=== PATIENT | male | born 1950 | race Caucasian/White ===

== ENCOUNTER → 2017-04-01 08:48 | Outpatient (CLI) | payer MEDICARE, BC ==
[~2017-04-01] VITALS: Ht 177.8 cm; Wt 106.8 kg
--- NOTE | ~2017-04-01 | HEMODYNAMI ---
PATIENT:RICCO ROBERSON MEDICAL RECORD: [id number] : 46 LOCATION:DKerriCAT ADMISSION DATE: 04/01/17 Generatedon:04/01/201713:18 Patient name: RICCO ROBERSON Patient #: [id number] SSN: : 1950 Date of study: 04/01/2017 Page: Of Hemodynamic Procedure Report Patient Data Patient Demographics Procedure consent was obtained First Name: RICCO Gender: Male Last Name: KAROL : 1950 [facility] Initial: BLAINE Age: 66 year(s) Patient #: [id number] Race: Unknown Additional ID: [id number] Contact details Address: [address] [place] [address] State: [place] City: [place] Zip code: [address] Admission Admission Data Admission Date: 04/01/2017 Admission Time: 8:48 Lab Results Lab Result Date: 04/01/2017 Lab Result Time: 0:00 Biochemistry Name Units Result Min Max BUN mg/dl 20 --(----)*- 7 18 Creatinine mg/dl 1.4 --(----)*- 0.6 1.3 CBC Name Units Result Min Max Hemoglobin g/dl 12.6 -*(----)-- 13.5 17.5 Procedure Procedure Types Cath Procedure Diagnostic Procedure [facility] w/Coronaries FFR/IVUS Intra-Coronary IVUS Initial PCI Procedure Coronary Stent Coronary Stent Initial Miscellaneous Procedures Moderate Sedation up to 15 minutes Procedure Description Procedure Date Procedure Date: 04/01/2017 Procedure Start Time: 12:59 Procedure End Time: 13:18 Procedure Staff Name Function Dalton Bowen MD Performing Physician Gregory Mishra RT Monitor Yumiko Lisa RT Scrub Mart Vega RN Nurse Procedure Data Cath Procedure Fluoroscopy Diagnostic fluoroscopy Total fluoroscopy Time: 3.7 time: 3.7 min min Diagnostic fluoroscopy Total fluoroscopy dose: 398 dose: 398 mGy mGy Contrast Material Contrast Material Type Amount (ml) Isovue 300 67 Entry Location Entry Primary Successful Side Size Upsize Upsize Entry Closure Succes sful Closure Location (Fr) 1 (Fr) 2 (Fr) Remarks Device Remarks Femoral Right 5 Fr 6 Fr Exoseal artery Short Estimated blood loss: 10 ml Diagnostic catheters Device Type Used For End Catheter Placement MULTIPACK Pigtail 5 Fr Procedure catheter MULTIPACK JL 4.0 5Fr Procedure catheter MULTIPACK 3DRC 5Fr Procedure catheter Procedure Complications No complications Procedure Medications Medication Administration Route Dosage Oxygen NC 2 l/min Lidocaine 2% added to field 20 Heparin Flush Bag added to field 2 bags (1000units/500ml NS) 0.9% NaCl I.V. 100 ml/hr Versed I.V. 1 mg Fentanyl I.V. 50 mcg Versed I.V. 1 mg Fentanyl I.V. 50 mcg Heparin Bolus I.V. 4000 units Fentanyl I.V. 25 mcg Hemodynamics Rest Heart Rate: 60 (bpm) Snapshots Pre Cath Intra NCS Post Cath Vital Signs Time Heart Resp SPO2 etCO2 NIBP (mmHg) Rhythm Pain Sedation Rate (ipm) (%) (mmHg) Status Level (bpm) 12:53:10 68 17 94 0 135/73(112) NSR 0 (11) 10(A) , No pain 12:57:28 63 16 97 0 121/72(94) NSR 0 (11) 10(A) , No pain 13:02:39 61 22 98 0 139/80(107) NSR 0 (11) 9(A) , No pain 13:06:55 60 18 98 0 129/76(109) NSR 0 (11) 9(A) , No pain 13:11:17 69 25 98 0 120/70(88) NSR 0 (11) 9(A) , No pain 13:15:31 67 18 100 0 133/82(98) NSR 0 (11) 10(A) , No pain Medications Time Medication Route Dose Verified Delivered Reason Notes Effectiveness by by 12:53:13 Oxygen NC 2 Dalton Cevallos used for l/min Andrés Vega RN procedure 12:53:22 Lidocaine 2% added 20ml Dalton Hoffman for local to vial Andrés Bowen MD anesthetic field 12:53:29 Heparin Flush added 2 Dalton Hoffman used for Bag to bags Andrés Bowen MD procedure (1000units/500ml field NS) 12:53:39 0.9% NaCl I.V. 100 Dalton Cevallos Per physician ml/hr Andrés Vega RN 12:58:05 Versed I.V. 1 mg Dalton Cecilyie for sedation Andrés Vega RN 12:58:11 Fentanyl I.V. 50 Dalton Buffie for sedation mcg Andrés Vega RN 13:00:41 Versed I.V. 1 mg Dalton Tonyie for sedation Andrés Vega RN 13:00:45 Fentanyl I.V. 50 Dalton Tonyie for sedation mcg Andrés Vega RN 13:05:03 Heparin Bolus I.V. 4000 Dalton Buffie for verifi ed units Andrés Vega RN anticoagulation with dr bowen 13:05:11 Fentanyl I.V. 25 Dalton Cecilyie for sedation mcg Andrés Vega RN Procedure Log Time Note 12:22:37 Time tracking: Regular hours 12:22:41 Plan of Care:Hemodynamics will remain stable., Cardiac rhythm will remain stable., Comfort level will be maintained., Respiratory function will remain adequate., Patient/ family verbilizes understanding of procedure., Procedure tolerated without complication., Recovers from procedure without complications.. 12:24:47 Gregory Mishra RT(R) sent for patient. Start room use. 12:25:49 H&P Date Dictated: 04/01/2017 Within 30 days and on chart., H&P Addendum completed by physician on day of procedure. (MUST COMPLETE FOR ALL OUTPATIENTS). 12:26:19 Lab Result : BUN 20 mg/dl 12:26:19 Lab Result : Hemoglobin 12.6 g/dl 12:26:19 Lab Result : Creatinine 1.4 mg/dl 12:26:25 Lab results completed and on chart. 12:35:29 Patient received from Pre/Post Procedure Room to CCL 3 Alert and oriented. Tansferred to table in Supine position. 12:35:30 Warm blankets applied, and taylor hugger turned on for patient comfort. 12:35:30 Correct patient and procedure confirmed by team. 12:35:32 Signed procedure consent form obtained from patient. 12:35:33 ECG and BP/O2 sat monitors applied to patient. 12:51:51 Vital chart was started 12:51:56 Rhythm: sinus rhythm 12:51:57 Full Disclosure recording started 12:51:59 Pre-procedure instructions explained to patient. 12:51:59 Pre-op teaching completed and patient verbalized understanding. 12:52:02 Family in waiting room. 12:52:03 Patient NPO since Midnight. 12:52:04 Is the patient allergic to Iodine/contrast media? No. 12:52:06 Is patient on blood thinner?Yes 12:52:18 ACC The patient was administered the following blood thiners within the last 24 hours: ACCPlavix 12:52:28 Patient diabetic? Yes. 12:52:29 If diabetic: On Metformin? Yes 12:52:35 If on Metformin: Last Dose? 03/30/2017 12:52:40 Previous problem with sedation/anesthesia? No ? 12:52:55 Snore? Yes 12:52:57 Sleep apnea? No 12:52:58 Deviated septum? No 12:52:58 Opens mouth fully? Yes 12:52:59 Sticks out tongue? Yes 12:53:02 Airway obstruction? No ? 12:53:05 Dentures? Yes IN 12:53:09 Pre procedure: right dorsailis pedis pulse 1+ Palpable, but thready & weak; easily obliterated 12:53:11 Modified Ke's test Ulnar > 7 seconds. 12:53:13 Oxygen 2 l/min NC was administered by Mart Vgea RN; used for procedure; 12:53:22 Lidocaine 2% 20ml vial added to field was administered by Dalton Bowen MD; for local anesthetic; 12:53:22 FAILED ALLENS 12:53:25 Patient pain scale 0/10 ?. 12:53:29 Heparin Flush Bag (1000units/500ml NS) 2 bags added to field was administered by Dalton Bowen MD; used for procedure; 12:53:32 IV patent on arrival in left forearm with 0.9% NaCl at O. 12:53:39 0.9% NaCl 100 ml/hr I.V. was administered by Mart Vega RN; Per physician; 12:53:43 Right groin area was prepped with chlora-prep and draped in sterile fashion 12:53:44 Alarms reviewed by R. N. 12:53:45 Sharps counted by scrub and verified by R.N. 12:53:51 Use device set Femoral Dx 12:53:53 Tegaderm 4 x 4 (1626W) opened to sterile field. 12:53:54 ACIST Manifold (54666) opened to sterile field. 12:53:54 ACIST Hand Control (62563) opened to sterile field. 12:53:56 ACIST Syringe (32082) opened to sterile field. 12:53:56 Bag Decanter (2002S) opened to sterile field. 12:53:57 Medline Cath Pack ([id number]) opened to sterile field. 12:53:57 SHEATH 5FR [place] (ELM876) opened to sterile field. 12:54:10 DIAGNOSTIC WIRE .035 260cm J wire (723230) opened to sterile field. 12:54:13 DIAGNOSTIC Multipack 5Fr catheter set (FH9961) opened to sterile field. 12:54:13 PERCUTANEOUS ENTRY 19GA needle opened to sterile field. 12:57:24 --------ALL STOP TIME OUT------ 12:57:25 Final Timeout: patient, procedure, and site verified with staff and physician. All members of the team are in agreement. 12:57:30 Right groin site verified by team. 12:57:32 Physical assessment completed. ASA score P 2 - A patient with mild systemic disease as per Dalton Bowen MD. 12:57:35 Sedation plan: IV Moderate Sedation Medication:Versed, Fentanyl 12:58:05 Versed 1 mg I.V. was administered by Mart Vega RN; for sedation; 12:58:11 Fentanyl 50 mcg I.V. was administered by Mart Vega RN; for sedation; 12:59:14 Procedure started. 12:59:17 Local anesthetic to right femoral artery with Lidocaine 2% by Dalton Bowen MD.INITIAL ACCESS ONLY 12:59:40 A 5 Fr sheath was inserted into the Right Femoral artery 12:59:54 A MULTIPACK Pigtail 5 Fr catheter was advanced over the wire and used for Procedure. 12:59:59 Baseline sample Acquired. 13:00:18 LV angiography performed. 13:00:19 LV gram done using CROOK 13:00:24 EF : 55 % 13:00:30 Injector settings: Ml/sec: 10, Volume: 20, 13:00:33 Catheter removed. 13:00:40 A MULTIPACK JL 4.0 5Fr catheter was advanced over the wire and used for Procedure. 13:00:41 Versed 1 mg I.V. was administered by Mart Vega RN; for sedation; 13:00:45 Fentanyl 50 mcg I.V. was administered by Mart Vega RN; for sedation; 13:01:17 LCA angiography performed. 13:01:49 Catheter removed. 13:01:51 INFLATOR Merit BasixCompak (FB7890) opened to sterile field. 13:01:52 SHEATH 6FR [place] (JXY580) opened to sterile field. 13:01:57 A MULTIPACK 3DRC 5Fr catheter was advanced over the wire and used for Procedure. 13:02:49 RCA angiography performed. 13:02:51 Catheter removed. 13:02:55 [place] IVUS Catheter (70433A) opened to sterile field. 13:02:56 WHISPER 190cm wire ([id number]) opened to sterile field. 13:03:25 GUIDE 6FR AR 1.0 catheter ([id number]) opened to sterile field. 13:03:35 Sheath upsized to a 6 Fr Short. 13:03:43 6 Fr AR 1 guide catheter was inserted over the wire 13:04:55 Whisper wire advanced. 13:05:03 Heparin Bolus 4000 units I.V. was administered by Mart Vega RN; for anticoagulation; verified with dr bowen 13:05:11 Fentanyl 25 mcg I.V. was administered by Mart Vega RN; for sedation; 13:05:38 Wire advanced across lesion. 13:05:52 IVUS catheter advanced over wire. 13:06:39 IVUS pass to RCA lesion performed. 13:11:06 Inflation Number: 1 A INTEGRITY RX 3.5 x 30 stent ([id number]) was prepped and advanced across the Mid RCA. The stent was deployed at 17 SNOW for 0:10 (min:sec). 13:11:36 Stent catheter was removed intact over wire. 13:11:37 Wire removed. 13:11:37 Guide catheter removed. 13:11:47 EXOSEAL 6Fr (EX600) opened to sterile field. 13:11:56 Sheath removed intact; hemostasis achieved with Exoseal to the Right Femoral artery. 13:11:58 Procedure ended.(Physican Out) 13:12:32 Fluoroscopy time 03.70 minutes. 13:12:36 Fluoroscopy dose: 398 mGy 13:12:36 Flurop Dose total: 398 13:12:40 Contrast amount:Isovue 300 67ml. 13:12:41 Sharps counted by scrub and verified by R.N. 13:12:42 Insertion/operative site no bleeding no hematoma. 13:12:44 Post-op/insertion site Right Femoral artery dressed using a 4 x 4 and Tegaderm. 13:12:45 Post Procedure Pulses reassessed and unchanged 13:12:48 Post-procedure physical assessment completed. ASA score P 2 - A patient with mild systemic disease as per Dalton Bowen MD. 13:12:51 Post procedure rhythm: unchanged. 13:14:50 Estimated blood loss: 10 ml 13:14:52 Post procedure instruction explained to patient.Patient verbalizes understanding. 13:14:52 Patient needs reinforcement of post procedure teaching. 13:15:04 Procedure type changed to Cath procedure, Diagnostic procedure, LHC, LHC w/Coronaries, FFR/IVUS, Intra-Coronary IVUS Initial, PCI procedure, Coronary Stent, Coronary Stent Initial, Miscellaneous Procedures, Moderate Sedation up to 15 minutes 13:15:30 Procedure and supply charges have been captured, reviewed, submitted and are correct. 13:15:32 Procedure Complication : No complications 13:15:35 See physician's report for complete and final results. 13:15:41 Report given to Pre/Post Procedure Room. 13:17:45 Vital chart was stopped 13:17:58 Patient transfered to Pre/Post Procedure Room with Stretcher. 13:18:00 Procedure ended. 13:18:00 Full Disclosure recording stopped 13:18:06 End room use (Document Last) Intervention Summary Intervention Notes Time ActionType Lesion and Equipment Action# Pressure Duration Attributes Used 13:11:06 Place stent Mid RCA INTEGRITY RX 1 17 00:10 3.5 x 30 stent ([id number]) Device Usage Item Name Manufacture Quantity Catalog Hospital Part Current Minimal Lot# / Number Charge Number Stock Stock Serial# Code Tegaderm 4 x 3M 1 1626W [id number] 733924 [id number] 5 4 (1626W) ACIST Acist 1 51779 427662 570582 937178 5 Manifold Medical (10612) Systems Inc ACIST Hand Acist 1 26594 526742 715195 806337 5 Control Medical (22720) Systems Inc ACIST Acist 1 30127 029696 727635 573017 20 Syringe Medical (36178) Systems Inc Bag Decanter Microtek 1 2001S 840571 55704 462789 5 (2001S) Medical Inc. Medline Cath Cardinal 1 [id number] 700311 50085 685669 5 [place] ([id number]) SHEATH 5FR Terumo 1 DBQ833 438922 943292 055623 40 [place] (JUT771) DIAGNOSTIC St Tommy 1 482969 051652 374966 169756 30 WIRE .035 260cm J wire (997186) DIAGNOSTIC Cardinal 1 PD2899 844201 62121 345942 30 MultipJimdo 5Fr catheter set (DX5670) PERCUTANEOUS [facility] 1 J54465 665970 141428 5 ENTRY 19GA needle MULTIPACK Cardinal 1 830841 5 Pigtail 5 Fr Health catheter MULTIPACK JL Cardinal 1 870804 5 4.0 5Fr MIOX catheter INFLATOR [facility] 1 VA0081 011410 885890 569598 15 [place]amel[place] BasixCompak (XI6606) SHEATH 6FR Terumo 1 BFI016 581372 851592 428037 40 [place] (JGL396) MULTIPACK Cardinal 1 640988 5 3DRC 5Fr Health catheter [place] 1 86911H 985337 608834 897763 8 [place] IVUS Catheter (93003E) WHISPER Almodovar 1 [id number] 279415 850817 938619 5 190cm wire Vascular ([id number]) GUIDE 6FR AR Medtronic 1 [id number] 803136 47428 198235 1 1.0 catheter ([id number]) INTEGRITY RX Medtronic 1 [id number] 385426 651585 230591 5 [id number] 3.5 x 30 stent ([id number]) EXOSEAL 6Fr Cardinal 1 EX600 807791 055815 868514 10 (EX600) Health Signature Audit [place] Stage Time Signature Unsigned Intra-Procedure 04/01/2017 Gregory Mishra 1:18:39 PM RT(R) Signatures Monitor : Gregory Mishra RT Signature : Date : Time : [place] [address] [place] [address]
--- NOTE | ~2017-04-01 | HP ---
PATIENT: RICCO ROBERSON MEDICAL RECORD: [id number] ACCOUNT: [id number] LOCATION:FELICITY : 46 ADMISSION DATE: 04/01/17 HISTORY AND PHYSICAL EXAMINATION DIAGNOSES: 1. Angina. 2. Abnormal nuclear stress test. 3. Shortness of breath. 4. Hypertension. 5. Hyperlipidemia. HISTORY OF PRESENT ILLNESS: Mr. Roberson presents with angina and shortness of breath, found to have significant perfusion defect on nuclear stress test, it is reversible ischemia, he is now brought for cardiac catheterization. REVIEW OF SYSTEMS: The patient reports easy bruising but reports no swollen glands. The patient reports no fever, no night sweats, no significant weight gain, no significant weight loss. No significant exercise tolerance. The patient reports no dry eyes, no irritation, no vision change. Patient reports no difficulty hearing and no ear pain. Patient reports no frequent nose bleeds or nose and sinus problems. Patient reports on arm pain on exertion. No shortness of breath while lying down. No history of heart murmur. Patient reports no cough, no wheezing or coughing up blood. Patient reports no abdominal pain, no vomiting. Normal appetite. No diarrhea and not vomiting blood. No nausea and no constipation. Patient reports no incontinence. No difficulty urinating. No hematuria. No increased frequency. Patient reports no muscle aches. No weakness, no arthralgias, no back pain. No swelling of the extremities. Patient reports no abnormal mole, no jaundice, no rashes. Reports no loss of consciousness. No weakness and no numbness. No seizures, dizziness, or headaches. The patient reports no depression, no sleep disturbance, feeling safe in a relationship and no alcohol abuse. Patient reports on fatigue. Reports no runny nose or sinus pressure. No itching, no hives, and no frequent sneezing. PHYSICAL EXAMINATION: GENERAL APPEARANCE: Well-nourished, well-developed, appears stated age. Level of distress, comfortable. PSYCHIATRIC: Mental status, alert, normal affect. Orientation, oriented to time, place and person. EYES: Lids and conjunctiva, noninjected. No discharge, no pallor. ENT: Lips, teeth, gums, normal dentition. Oropharynx, no cyanosis, no pallor. NECK: Carotid arteries, bilateral normal upstroke, no bruits, no thrills. JUGULAR VEINS: No jugular venous pressure or distention. CERVICAL LYMPH NODES: Nontender, nonenlarged. THYROID: Not enlarged. Nontender. No nodules. LUNGS: Respiratory effort, unlabored. CHEST: Normal curvature. No thoracic deformity. No chest wall tenderness. Percussion, resonant. Auscultation, clear. No wheezes, no rales, no rhonchi. CARDIOVASCULAR: Precordial exam, nondisplaced. No heaves or pericardial thrills. Rate and rhythm, regular. Heart sounds, normal S1, normal S2. No S3, no gallop, no rub. Systolic murmur, not heard. Diastolic murmur, not heard. EXTREMITIES: No cyanosis, no edema. Peripheral pulses, full and equal in all extremities, except as noted. No bruits appreciated. ABDOMEN: Soft, nondistended. Normal aorta. No bruit. Nontender. No masses. HISTORY AND PHYSICAL [id number] RICCO ROBERSON Liver, nontender, no hepatomegaly. Spleen, nontender, no splenomegaly. MUSCULOSKELETAL: No joint tenderness. No joint swelling. No erythema. NEUROLOGICAL: Normal gait, normal strength, normal tone. SKIN: Warm and dry. OVERALL IMPRESSION: Anginal symptomatology with significant perfusion defect that is reversible on nuclear stress testing. Most likely, he has hemodynamically significant coronary artery disease. We will proceed with coronary angiography. Further care depends upon the findings of the angiography. TRANSINT:[id number] Voice Confirmation ID: [id number] DOCUMENT ID: [id number] GOKUL VIVEROS MD at 1324 CC: [id number] DICTATION DATE: 04/01/17 0956 [employer] NET DEVELOPER: 04/01/17 1029 [facility] CLI 04/01/17 [place] [address] [place] [address]
--- NOTE | ~2017-04-01 | OP ---
PATIENT NAME: RICCO ROBERSON MEDICAL RECORD: [id number] :46 LOCATION:D.CAT ADMISSION DATE: SURGEON: GOKUL VIVEROS MD DATE OF OPERATION: 04/01/2017 PROCEDURES: 1. PTCA stent to RCA. 2. Intravascular ultrasound. 3. Left heart catheterization. 4. Selective coronary angiography. 5. Left ventriculogram. INDICATION: Angina and coronary artery disease. PROCEDURE IN DETAIL: After informed consent was obtained and after detailed explanation of risks, benefits as well as alternative therapies, the patient elected to proceed with angiogram and angioplasty. The right femoral area was prepped and draped in normal sterile fashion. The right femoral artery was cannulated via modified Seldinger technique with placement of 6-Syriac sheath. All catheters exchanged through this sheath. FINDINGS: The left ventriculogram was performed in standard 30-degree CROOK view reveals good wall motion throughout all segments. Overall ejection fraction estimated at 60%. SELECTIVE CORONARY ANGIOGRAPHY: 1. Left main showed no significant angiographic disease. 2. Left anterior descending has an area of greater than 70% stenosis in the mid vessel. 3. Left circumflex has 70% to 80% stenosis mid vessel. 4. Right coronary artery has 65% to 70% stenosis throughout the mid vessel confirmed by intravascular ultrasound. PTCA STENT OF THE RIGHT CORONARY ARTERY: The stent used was 3.0 x 30 mm Integrity. Result was 0% residual stenosis. OVERALL IMPRESSION: Successful percutaneous transluminal coronary angioplasty stent of the right coronary artery going from approximately 70% initial stenosis to 0% residual. PLAN: PTCA stent of the LAD and circumflex in the near future. TRANSINT:[id number] Voice Confirmation ID: [id number] DOCUMENT ID: [id number] GOKUL VIVEROS MD at 1324 CC: [id number] DICTATION DATE: 04/01/17 1318 [employer] SHIFT MANAGER: 04/01/17 1340 [facility] CLI 04/01/17 [place] [id number] [place] [address]
[~2017-04-01 08:48] MED LIST: BAYER CHEWABLE81 MG PO; FENOFIBRATE160 MG PO; GLUCOPHAGE1000 MG PO; HCTZ25 MG PO; ISOSORBIDE MONO30 M1 PO; LIPITOR80 MG PO; PLAVIX75 MG PO; PRINIVIL20 MG PO
[2017-04-01 09:29] VITALS: BP 146/71; Ht 177.8 cm; Wt 106.8 kg
[2017-04-01 09:40] LABS: BASOPHILS 0.2 % (0-2); EOSINOPHILS 1.5 % (0-7); HEMATOCRIT 39.7 % (42.0-54.0); HEMOGLOBIN 12.6 g/dL (13.5-17.5); IMMATURE GRANULOCYTES 0.2 % (0-5); LYMPHOCYTES 39.4 % (15-50); MCHC 31.7 g/dL (31.0-37.0); MEAN PLATELET VOLUME 11.5 fL (7.4-10.4); MONOCYTES 7.9 % (2-11); NEUTROPHILS 50.8 % (40-80); PLATELET COUNT 204 10x3/uL (130-400); RBC 4.67 10x6/uL (4.20-6.10); RDW 13.5 % (11.5-14.5); WBC 8.1 10x3/uL (4.8-10.8)
[2017-04-01 10:41] LABS: ANION GAP 12.3 mmol/L (8-16); CARBON DIOXIDE 29.1 mmol/L (21.0-32.0); CREATININE - SERUM 1.4 mg/dL (0.6-1.3); POTASSIUM - SERUM 4.4 mmol/L (3.5-5.1)
== END | disposition home or self-care (01) ==
LOC: D.CATH 08:48
PROVIDERS: Internal Medicine Interventional Cardiology
DX: I25.119 Atherosclerotic heart disease of native coronary artery with unspecified angina pectoris (principal); R94.39 Abnormal result of other cardiovascular function study; I10 Essential (primary) hypertension; E78.5 Hyperlipidemia, unspecified; Z01.812 Encounter for preprocedural laboratory examination

== ENCOUNTER 2017-04-08 08:13 | Outpatient (CLI) | payer MEDICARE, BC ==
[~2017-04-08] VITALS: Ht 177.8 cm; Wt 106.8 kg
--- NOTE | ~2017-04-08 | HEMODYNAMI ---
PATIENT:RICCO ROBERSON MEDICAL RECORD: [id number] : 46 LOCATION:[facility] ADMISSION DATE: 04/08/17 Generatedon:04/08/201711:20 Patient name: RICCO ROBERSON Patient #: [id number] SSN: : 1950 Date of study: 04/08/2017 Page: Of Hemodynamic Procedure Report Patient Data Patient Demographics Procedure consent was obtained First Name: RICCO Gender: Male Last Name: KAROL : 1950 [facility] Initial: BLAINE Age: 66 year(s) Patient #: [id number] Race: Unknown Additional ID: [id number] Contact details [address]: [address] [place] [address] State: [place] City: [place] Zip code: [address] Past Medical History Allergies: No known allergies Admission Admission Data Admission Date: 04/08/2017 Admission Time: 8:13 Procedure Procedure Types Cath Procedure Diagnostic Procedure LHC LHC w/Coronaries FFR/IVUS Intra-Coronary IVUS Initial PCI Procedure Coronary Stent Coronary Stent Initial x2 Miscellaneous Procedures Moderate Sedation up to 45 minutes Procedure Description Procedure Date Procedure Date: 04/08/2017 Procedure Start Time: 11:01 Procedure End Time: 11:19 Procedure Staff Name Function Dalton Bowen MD Performing Physician Heydi Moise RT Monitor Gregory Mishra RT Scrub Anthony Calle RN Nurse Procedure Data Cath Procedure Fluoroscopy Diagnostic fluoroscopy Total fluoroscopy Time: 4.5 time: 4.5 min min Diagnostic fluoroscopy Total fluoroscopy dose: 552 dose: 552 mGy mGy Contrast Material Contrast Material Type Amount (ml) Isovue 300 85 Entry Location Entry Primary Successful Side Size Upsize Upsize Entry Closure Succes sful Closure Location (Fr) 1 (Fr) 2 (Fr) Remarks Device Remarks Femoral Left 6 Fr Exoseal artery Short Estimated blood loss: 10 ml Procedure Complications No complications Procedure Medications Medication Administration Route Dosage Oxygen NC 2 l/min Heparin Flush Bag added to field 2 bags (1000units/500ml NS) 0.9% NaCl I.V. 100 ml/hr Fentanyl I.V. 50 mcg Versed I.V. 1 mg Fentanyl I.V. 50 mcg Versed I.V. 1 mg Fentanyl I.V. 50 mcg Heparin Bolus I.V. 4000 units Fentanyl I.V. 50 mcg Hemodynamics Rest HGB: 12.6 (g/dl) Heart Rate: 66 (bpm) Snapshots Pre Cath Intra NCS Post Cath Vital Signs Time Heart Resp SPO2 etCO2 NIBP (mmHg) Rhythm Pain Sedation Rate (ipm) (%) (mmHg) Status Level (bpm) 10:20:30 65 16 96 0 160/78(136) NSR 0 (11) 10(A) , No pain 10:25:15 65 17 95 0 157/76(126) NSR 0 (11) 10(A) , No pain 10:30:00 65 19 96 42.2 147/79(114) NSR 0 (11) 10(A) , No pain 10:34:43 61 17 96 0 145/69(105) NSR 0 (11) 9(A) , No pain 10:39:25 59 17 96 36.2 131/60(93) NSR 0 (11) 9(A) , No pain 10:44:08 59 18 94 36.9 119/64(91) NSR 0 (11) 9(A) , No pain 10:48:46 60 17 94 33.9 133/71(93) NSR 0 (11) 9(A) , No pain 10:53:31 59 16 96 33.1 128/68(94) NSR 0 (11) 9(A) , No pain 10:58:12 59 19 98 24.8 136/71(92) NSR 0 (11) 9(A) , No pain 11:03:31 68 16 92 24.1 106/76(98) NSR 0 (11) 9(A) , No pain 11:08:49 65 18 95 37.7 97/73(88) NSR 0 (11) 9(A) , No pain 11:13:56 64 16 97 37.7 146/74(96) NSR 0 (11) 9(A) , No pain 11:18:55 63 7 97 37.7 Measuring NSR 0 (11) 9(A) , No pain 11:19:21 62 7 97 41.4 148/72(107) NSR 0 (11) 9(A) , No pain Medications Time Medication Route Dose Verified Delivered Reason Notes Effectiveness by by 10:22:10 Oxygen NC 2 Dalton Anthony Per physician l/min Andrés Calle RN 10:22:19 Heparin Flush added 2 Dalton Jonesy used for Bag to bags Andrés Calle RN procedure (1000units/500ml field NS) 10:22:28 0.9% NaCl I.V. 100 Dalton Anthony Per physician ml/hr Andrés Calle RN 10:26:16 Fentanyl I.V. 50 Dalton Anthony for sedation mcg Andrés Calle RN 10:26:23 Versed I.V. 1 mg Dalton Anthony for sedation Andrés Calle RN 10:32:50 Fentanyl I.V. 50 Dalton Anthony for sedation mcg Andrés Calle RN 10:32:53 Versed I.V. 1 mg Dalton Anthony for sedation Andrés Calle RN 10:59:37 Fentanyl I.V. 50 Dalton Anthony for sedation mcg Andrés Calle RN 11:04:07 Heparin Bolus I.V. 4000 Dalton Anthony for units Andrés Calle RN anticoagulation 11:09:14 Fentanyl I.V. 50 Dalton Anthony for sedation mcg Andrés Calle RN Procedure Log Time Note 10:00:54 Gregory Mishra RT(R) sent for patient. Start room use. 10:10:55 Time tracking: Regular hours 10:10:58 Plan of Care:Hemodynamics will remain stable., Cardiac rhythm will remain stable., Comfort level will be maintained., Respiratory function will remain adequate., Patient/ family verbilizes understanding of procedure., Procedure tolerated without complication., Recovers from procedure without complications.. 10:13:31 Patient received from Pre/Post Procedure Room to CCL 1 Alert and oriented. Tansferred to table in Supine position. 10:13:32 Warm blankets applied, and taylor hugger turned on for patient comfort. 10:13:33 Correct patient and procedure confirmed by team. 10:13:34 Signed procedure consent form obtained from patient. 10:13:35 ECG and BP/O2 sat monitors applied to patient. 10:13:36 Full Disclosure recording started 10:19:30 Vital chart was started 10:22:10 Oxygen 2 l/min NC was administered by Anthony Calle RN; Per physician; 10:22:19 Heparin Flush Bag (1000units/500ml NS) 2 bags added to field was administered by Anthony Calle RN; used for procedure; 10:22:28 0.9% NaCl 100 ml/hr I.V. was administered by Anthony Calle RN; Per physician; 10:23:00 Rhythm: sinus rhythm 10:23:32 H&P Date Dictated: 04/01/2017 Within 30 days and on chart., H&P Addendum completed by physician on day of procedure. (MUST COMPLETE FOR ALL OUTPATIENTS). 10:23:34 Pre-procedure instructions explained to patient. 10:23:35 Pre-op teaching completed and patient verbalized understanding. 10:23:36 Family in waiting room. 10:23:37 Patient NPO since Midnight. 10:23:43 Patient allergic to No known allergies 10:23:45 Is the patient allergic to Iodine/contrast media? No. 10:23:47 Is patient on blood thinner?Yes 10:23:51 ACC The patient was administered the following blood thiners within the last 24 hours: ACCAspirin, ACCPlavix 10:23:57 Previous problem with sedation/anesthesia? No ? 10:23:58 Snore? Yes 10:23:58 Sleep apnea? No 10:23:59 Deviated septum? No 10:24:00 Opens mouth fully? Yes 10:24:00 Sticks out tongue? Yes 10:24:39 Dentures? Yes In 10:24:46 Patient diabetic? Yes. 10:25:00 If diabetic: On Metformin? Yes 10:25:03 If on Metformin: Last Dose? 03/30/2017 10:25:07 Pre procedure: left dorsailis pedis pulse 2+ Normal; easily identifiable; not easily obliterated 10:25:08 Patient pain scale 0/10 ?. 10:25:13 IV patent on arrival in left hand with 0.9% NaCl at KVO. 10:25:15 Lab results completed and on chart. 10:25:18 Left groin area was prepped with chlora-prep and draped in sterile fashion 10:25:19 Alarms reviewed by R. N. 10:25:19 Sharps counted by scrub and verified by R.N. 10:25:21 Final Timeout: patient, procedure, and site verified with staff and physician. All members of the team are in agreement. 10:25:22 Left groin site verified by team. 10:25:25 Physical assessment completed. ASA score P 2 - A patient with mild systemic disease as per Dalton Bowen MD. 10:25:27 Sedation plan: IV Moderate Sedation Medication:Versed, Fentanyl 10:25:33 Use device set CATH PACK 10:25:36 Use device set TAUTH PCI 10:25:38 ACIST Syringe (59727) opened to sterile field. 10:25:39 ACIST Hand Control (25197) opened to sterile field. 10:25:39 ACIST Manifold (01154) opened to sterile field. 10:25:40 Medline Cath Pack ([id number]) opened to sterile field. 10:25:40 Bag Decanter (2002S) opened to sterile field. 10:25:41 DIAGNOSTIC WIRE .035 260cm J wire (410388) opened to sterile field. 10:25:42 INFLATOR Merit BasixCompak (DC7152) opened to sterile field. 10:25:43 SHEATH 6FR [place] (LXL645) opened to sterile field. 10:25:44 CHOICE PT Extra Support J 300cm guide wire ([id number]) opened to sterile field. 10:25:55 GUIDE 6FR XBLAD 3.5 catheter ([id number]) opened to sterile field. 10:26:16 Fentanyl 50 mcg I.V. was administered by Anthony Calle RN; for sedation; 10:26:23 Versed 1 mg I.V. was administered by Anthony Calle RN; for sedation; 10:28:21 [place] Eagleye IVUS Catheter (08598S) opened to sterile field. 10:31:20 Baseline sample Acquired. 10:32:15 Zero performed for pressure channel P1 10:32:18 Zero performed for pressure channel P1 10:32:50 Fentanyl 50 mcg I.V. was administered by Anthoyn Calle RN; for sedation; 10:32:53 Versed 1 mg I.V. was administered by Anthony Calle RN; for sedation; 10:59:37 Fentanyl 50 mcg I.V. was administered by Anthony Calle RN; for sedation; 11::18 Procedure started. 11::24 Local anesthetic to left femerol artery with Lidocaine 2% by Dalton Bowen MD.INITIAL ACCESS ONLY 11:02:03 A 6 Fr Short sheath was inserted into the Left Femoral artery 11:02:38 6 Fr XBLAD 3.5 guide catheter was inserted over the wire 11:03:03 Choice PT ES wire advanced. 11:03:42 Wire advanced down LAD 11:03:46 IVUS catheter advanced over wire. 11:03:49 IVUS pass to LAD lesion performed. 11:04:07 Heparin Bolus 4000 units I.V. was administered by Anthony Calle RN; for anticoagulation; 11:06:50 IVUS catheter removed over wire. 11:08:39 Inflation Number: 1 A INTEGRITY OTW 3.5 X 26 stent ([id number]) was prepped and advanced across the Mid LAD. The stent was deployed at 11 SNOW for 0:10 (min:sec). 11:09:07 Stent catheter was removed intact over wire. 11:09:12 Wire redirected to Circ. 11:09:14 Fentanyl 50 mcg I.V. was administered by Anthony Calle RN; for sedation; 11:11:44 Inflation Number: 1 A INTEGRITY OTW 3.5 X 30 stent ([id number]) was prepped and advanced across the Mid CX. The stent was deployed at 13 SNOW for 0:06 (min:sec). 11:12:00 Inflation number: 2 The stent balloon was then re-inflated across the Mid CX to 13 SNOW for 0:06 (min:sec). 11:12:20 Stent catheter was removed intact over wire. 11:12:20 Wire removed. 11:12:21 Guide catheter removed. 11:12:26 Sheath removed intact; hemostasis achieved with Exoseal to the Left Femoral artery. 11::28 Procedure ended.(Physican Out) :12:37 Fluoroscopy time 04.50 minutes. 11:12:46 Flurop Dose total: 552 11:12:46 Fluoroscopy dose: 552 mGy 11:12:57 Contrast amount:Isovue 300 85ml. ::59 Sharps counted by scrub and verified by R.N. 11:13:00 Insertion/operative site no bleeding no hematoma. 11:13:03 Post-op/insertion site Left Femoral artery dressed using a 4 x 4 and Tegaderm. 11:13:06 Post left femerol artery:stable, clean and dry 11:13:08 Post Procedure Pulses reassessed and unchanged 11:13:10 Post-procedure physical assessment completed. ASA score P 2 - A patient with mild systemic disease as per Dalton Bowen MD. 11:13:13 Post procedure rhythm: unchanged. 11:13:18 Estimated blood loss: 10 ml 11:13:19 Post procedure instruction explained to patient.Patient verbalizes understanding. 11:13:20 Patient needs reinforcement of post procedure teaching. 11:13:39 Procedure type changed to Cath procedure, Diagnostic procedure, LHC, LHC w/Coronaries, FFR/IVUS, Intra-Coronary IVUS Initial, PCI procedure, Coronary Stent, Coronary Stent Initial x2, Miscellaneous Procedures, Moderate Sedation up to 45 minutes 11:13:40 Procedure and supply charges have been captured, reviewed, submitted and are correct. 11:13:45 Procedure Complication : No complications 11:13:48 See physician's report for complete and final results. 11:13:58 EXOSEAL 6Fr (EX600) opened to sterile field. 11:18:14 Report given to Pre/Post Procedure Room. 11:18:16 Patient transfered to Pre/Post Procedure Room with Stretcher. 11:19:05 PERCUTANEOUS ENTRY 19GA needle opened to sterile field. 11:19:18 Vital chart was stopped 11:19:20 Procedure ended. 11:19:20 Full Disclosure recording stopped 11:20:07 End room use (Document Last) Intervention Summary Intervention Notes Time ActionType Lesion and Equipment Action# Pressure Duration Attributes Used 11:08:39 Place stent Mid LAD INTEGRITY 1 11 00:10 OTW 3.5 X 26 stent ([id number]) 11:11:44 Place stent Mid CX INTEGRITY 1 13 00:06 OTW 3.5 X 30 stent ([id number]) 11:12:00 Reinflate Mid CX INTEGRITY 2 13 00:06 stent OTW 3.5 X balloon 30 stent ([id number]) Device Usage Item Name Manufacture Quantity Catalog Number Hospital Part Current [facility] Lot# / Charge Number Stock Stock Serial# Code ACIST Acist 1 26307 191608 379387 763017 20 Syringe Medical (35792) Systems Inc ACIST Hand Acist 1 10049 651920 616006 680254 5 Control Medical (31028) Systems Inc ACIST Acist 1 35333 052822 043715 456001 5 Manifold Medical (92667) Systems Inc Medline Cath Cardinal 1 [id number] 842049 53569 278505 5 Pack Health ([id number]) Bag Decanter Microtek 1 2001S 873906 15465 357315 5 (2001S) Medical Inc. DIAGNOSTIC St Tommy 1 256035 753746 620625 685878 30 WIRE .035 260cm J wire (696702) INFLATOR Etherstack 1 HT5571 815079 181440 253422 15 Prognosis Health Information Systems BasixCompak (ZG3180) SHEATH 6FR Terumo 1 XCD090 669746 355308 270488 40 [place] (GPV559) CHOICE PT [place] 1 [id number] 453589 793287 734971 5 Extra Scientific Support J 300cm guide wire ([id number]) GUIDE 6FR Cardinal 1 [id number] 675235 355898 262204 10 XBLAD 3.5 Health catheter (17625446) [place] 1 79184K 332263 594770 220982 8 [place] Eag[place]e IVUS Catheter (90954O) INTEGRITY Medtronic 1 [id number] 299152 177691 3 [id number] OTW 3.5 X 26 stent ([id number]) INTEGRITY Medtronic 1 [id number] 307729 675685 6 [id number] OTW 3.5 X 30 stent ([id number]) EXOSEAL 6Fr Cardinal 1 EX600 983156 667773 585343 10 (EX600) Health PERCUTANEOUS [facility] 1 S12957 116588 844353 5 ENTRY 19GA needle Signature Audit [place] Stage Time Signature Unsigned Intra-Procedure 04/08/2017 Heydi 11:20:17 AM Counts RT(R) Signatures Monitor : Heyid Signature : Counts RT Date : Time : [facility] [address] [place] [address]
--- NOTE | ~2017-04-08 | HP ---
PATIENT: RICCO ROBERSON MEDICAL RECORD: [id number] ACCOUNT: [id number] LOCATION:FELICITY : 46 ADMISSION DATE: 04/08/17 HISTORY AND PHYSICAL EXAMINATION DIAGNOSES: 1. Angina. 2. Abnormal nuclear stress test. 3. Hypertension. 4. Hyperlipidemia. 5. Coronary artery disease. HISTORY OF PRESENT ILLNESS: Mr. Roberson has past history of coronary artery disease, began having recurrent anginal symptomatology, underwent risk stratification with stress testing revealing significant reversible ischemia, now brought for cardiac catheterization. PHYSICAL EXAMINATION: GENERAL APPEARANCE: Well-nourished, well-developed, appears stated age. Level of distress, comfortable. PSYCHIATRIC: Mental status, alert, normal affect. Orientation, oriented to time, place and person. EYES: Lids and conjunctiva, noninjected. No discharge, no pallor. ENT: Lips, teeth, gums, normal dentition. Oropharynx, no cyanosis, no pallor. NECK: Carotid arteries, bilateral normal upstroke, no bruits, no thrills. JUGULAR VEINS: No jugular venous pressure or distention. CERVICAL LYMPH NODES: Nontender, nonenlarged. THYROID: Not enlarged. Nontender. No nodules. LUNGS: Respiratory effort, unlabored. CHEST: Normal curvature. No thoracic deformity. No chest wall tenderness. Percussion, resonant. Auscultation, clear. No wheezes, no rales, no rhonchi. CARDIOVASCULAR: Precordial exam, nondisplaced. No heaves or pericardial thrills. Rate and rhythm, regular. Heart sounds, normal S1, normal S2. No S3, no gallop, no rub. Systolic murmur, not heard. Diastolic murmur, not heard. EXTREMITIES: No cyanosis, no edema. Peripheral pulses, full and equal in all extremities, except as noted. No bruits appreciated. ABDOMEN: Soft, nondistended. Normal aorta. No bruit. Nontender. No masses. Liver, nontender, no hepatomegaly. Spleen, nontender, no splenomegaly. MUSCULOSKELETAL: No joint tenderness. No joint swelling. No erythema. NEUROLOGICAL: Normal gait, normal strength, normal tone. SKIN: Warm and dry. REVIEW OF SYSTEMS: The patient reports easy bruising but reports no swollen glands. The patient reports no fever, no night sweats, no significant weight gain, no significant weight loss. No significant exercise tolerance. The patient reports no dry eyes, no irritation, no vision change. Patient reports no difficulty hearing and no ear pain. Patient reports no frequent nose bleeds or nose and sinus problems. Patient reports on arm pain on exertion. No shortness of breath while lying down. No history of heart murmur. Patient reports no cough, no wheezing or coughing up blood. Patient reports no abdominal pain, no vomiting. Normal appetite. No diarrhea and not vomiting blood. No nausea and no constipation. Patient reports no incontinence. No difficulty urinating. No hematuria. No increased frequency. Patient reports no muscle aches. No weakness, no arthralgias, no back pain. No swelling of the extremities. Patient reports no abnormal mole, no jaundice, no rashes. Reports HISTORY AND PHYSICAL [id number] RICCO ROBERSON no loss of consciousness. No weakness and no numbness. No seizures, dizziness, or headaches. The patient reports no depression, no sleep disturbance, feeling safe in a relationship and no alcohol abuse. Patient reports on fatigue. Reports no runny nose or sinus pressure. No itching, no hives, and no frequent sneezing. OVERALL IMPRESSION: Anginal symptomatology with abnormal nuclear stress test on risk stratification, most likely he has recurrent hemodynamically significant coronary artery disease. We will proceed with coronary angiography. Further care depends upon findings of the angiography. TRANSINT:[id number] Voice Confirmation ID: [id number] DOCUMENT ID: [id number] GOKUL VIVEROS MD at 1025 CC: [id number] DICTATION DATE: 04/08/17930 ONLINE MARKETING COORDINATOR: 04/08/17 1156 DEP CLI 04/08/17 [place] [id number] [place] [address]
--- NOTE | ~2017-04-08 | OP ---
PATIENT NAME: RICCO ROBERSON MEDICAL RECORD: [id number] :46 LOCATION:D.CAT ADMISSION DATE: SURGEON: GOKUL VIVEROS MD DATE OF OPERATION: 04/08/2017 PROCEDURES: 1. PTCA stent to LAD and left circumflex. 2. Intravascular ultrasound to LAD. 3. Selective coronary angiography. INDICATION: Angina and coronary artery disease. PROCEDURE IN DETAIL: After informed consent was obtained and after detailed explanation of risks, benefits as well as alternative therapies, the patient elected to proceed with angiogram and angioplasty. The left femoral area was prepped and draped in normal sterile fashion. Left femoral artery was cannulated via modified Seldinger technique with placement of 6-St Lucian sheath. All catheters exchanged through this sheath. FINDINGS: The left anterior descending has greater than 75% stenosis in the mid vessel confirmed by intravascular ultrasound. This was addressed with a 3.5 x 26 mm Integrity stent. The left circumflex has 70% to 80% stenosis in the mid vessel. This was addressed with a 3.5 x 30 mm Integrity stent. Result was 0% residual stenosis. OVERALL IMPRESSION: Successful percutaneous transluminal coronary angioplasty stent of the left anterior descending and circumflex, both going from 75% to 80% initial stenosis to 0% residual. TRANSINT:[id number] Voice Confirmation ID: [id number] DOCUMENT ID: [id number] GOKUL VIVEROS MD at 1025 CC: [id number] DICTATION DATE: 04/08/17 1116 CRIMINAL INTELLIGENCE ANALYST: 04/08/17 1318 DEP CLI 04/08/17 [place] [id number] [place] [id number]
[2017-04-08 08:52] VITALS: BP 129/69; Ht 177.8 cm; Wt 106.8 kg
[2017-04-08 09:04] LABS: BASOPHILS 0.1 % (0-2); HEMATOCRIT 40.4 % (42.0-54.0); IMMATURE GRANULOCYTES 0.2 % (0-5); LYMPHOCYTES 39.5 % (15-50); MCHC 32.2 g/dL (31.0-37.0); MCV 83.8 fL (80.0-100.0); MEAN PLATELET VOLUME 11.3 fL (7.4-10.4); MONOCYTES 5.9 % (2-11); NEUTROPHILS 52.3 % (40-80); PLATELET COUNT 221 10x3/uL (130-400); RBC 4.82 10x6/uL (4.20-6.10); RDW 13.4 % (11.5-14.5)
[2017-04-08 09:12] LABS: ANION GAP 12.6 mmol/L (8-16); CALCIUM 9.4 mg/dL (8.5-10.1); CARBON DIOXIDE 29.5 mmol/L (21.0-32.0); CREATININE - SERUM 1.6 mg/dL (0.6-1.3); POTASSIUM - SERUM 4.1 mmol/L (3.5-5.1)
== END 2017-04-08 15:20 | disposition home or self-care (01) ==
LOC: D.CATH 08:13
PROVIDERS: Internal Medicine Interventional Cardiology
DX: I25.119 Atherosclerotic heart disease of native coronary artery with unspecified angina pectoris (principal); R94.30 Abnormal result of cardiovascular function study, unspecified; I10 Essential (primary) hypertension; E78.5 Hyperlipidemia, unspecified; Z01.812 Encounter for preprocedural laboratory examination

== ENCOUNTER → 2019-05-21 09:04 | Outpatient (CLI) | payer MEDICARE, BC ==
[2017-04-08 08:52] VITALS: BMI 33.7
--- NOTE | ~2019-05-21 | ST ---
PATIENT:RICCO ROBERSON MEDICAL RECORD: [id number] SEX: M [facility] ORDER #: ADMISSION DATE: 05/21/19 AGE OF PATIENT: 69 REFERRING PHYSICIAN: INTERPRETING PHYSICIAN: GOKUL VIVEROS MD DATE OF SERVICE: 05/21/2019 INDICATION: Chest pain, shortness of breath, coronary artery disease. He was exercised on standard Lexiscan protocol with 33 mCi of sestamibi injected at peak stress and 11 mCi used previously for rest images. FINDINGS: Gated SPECT reveals preserved ejection fraction at 65% with decreased wall motion, thickening and brightening throughout the inferior segments. SPECT imaging: Cardiolite was used as myocardial perfusion agent. There was fixed perfusion defect inferiorly includes the basal, mid, apical, inferior segments. No evidence of reversibility. In fact, there is reversed redistribution and improvement in this defect with stress. The remaining segments are with homogeneous uptake at rest and stress. OVERALL IMPRESSION: This is a stable nuclear stress test, fixed perfusion defect inferiorly, but no ongoing ischemic burden with an ejection fraction normal at 65%. TRANSINT:[id number] Voice Confirmation ID: [id number] DOCUMENT ID: [id number] GOKUL VIVEROS MD CC: MG BURRIS MD [id number] DICTATION DATE: 05/21/19 1602 MAGICIAN/ILLUSIONIST: 05/22/19 0823 DEP CLI 05/21/19 [place] [id number] [place] [address]
== END | disposition home or self-care (01) ==
LOC: D.HCCARDIO 09:04
PROVIDERS: ATTEND Internal Medicine Interventional Cardiology
DX: I25.10 Atherosclerotic heart disease of native coronary artery without angina pectoris (principal)